=== PATIENT | female | born 1945 | race Caucasian/White ===

== ENCOUNTER 2017-02-28 10:38 | Inpatient (IN) | payer MEDICARE, BC ==
[2017-02-28 11:44] LABS: Basophils # (A) 0.1 k/uL (0-0.2); Basophils % (A) 1 %; CH 29.6; CHCM 33.5; Eosinophils # (A) 0.1 k/uL (0-0.7); Eosinophils % (A) 2 %; HCT 44.5 % (34.0-46.0); HDW 2.45; HGB 15.3 gm/dL (11.4-16.0); Luc # (Auto) 0.14; Luc % (Auto) 2; Lymphocytes # (A) 1.2 k/uL (1.0-4.8); Lymphocytes % (A) 20 %; MCH 30.6 pg (25.0-35.0); MCHC 34.4 g/dL (31.0-37.0); MCV 88.9 fL (80.0-100.0); Mean Platelet Volume 7.7; Monocytes # (A) 0.5 k/uL (0-1.0); Monocytes % (A) 9 %; Neutrophils # (A) 3.8 k/uL (1.3-7.7); Neutrophils % (A) 66 %; RBC 5.01 m/uL (3.80-5.40); RDW 14.2 % (11.5-15.5); WBC 5.8 k/uL (3.8-10.6); WBC (Perox) 5.56
[2017-02-28 11:56] LABS: ALT 41 U/L (9-52); AST 31 U/L (14-36); Alkaline Phosphatase 88 U/L (38-126); Anion Gap 12 mmol/L; Blood Urea Nitrogen 12 mg/dL (7-17); Calcium 10.4 mg/dL (8.4-10.2); Carbon Dioxide 25 mmol/L (22-30); Chloride 102 mmol/L (98-107); Glucose 106 mg/dL (74-99); Non-African American GFR(MDRD) >60 (>60 ml/min/1.73 sqM); Potassium 3.7 mmol/L (3.5-5.1); Sodium 139 mmol/L (137-145); Total Bilirubin 0.6 mg/dL (0.2-1.3); Total Protein 7.6 g/dL (6.3-8.2)
--- NOTE | 2017-02-28 12:05 | XR ---
EXAMINATION TYPE: XR chest 2V DATE OF EXAM: 02/28/2017 COMPARISON: Chest x-ray April 30, 2012 HISTORY: Altered mental status and weakness TECHNIQUE: Frontal and lateral views of the chest are obtained. FINDINGS: There is chronic parenchymal change without suspicious focal air space opacity, pleural ef fusion, or pneumothorax seen. The cardiac silhouette size is mildly enlarged with ectatic thoracic a frankie. The osseous structures are demineralized. IMPRESSION: No acute pulmonary process. No significant change from prior.
--- NOTE | 2017-02-28 12:08 | CT ---
EXAMINATION TYPE: CT brain wo con DATE OF EXAM: 02/28/2017 HISTORY: Headache, left sided facial droop slurred speech. CT DLP: 999.80 mGycm. Automated Exposure Control for Dose Reduction was Utilized. TECHNIQUE: CT scan of the head is performed without contrast. COMPARISON: None. FINDINGS: There is no acute intracranial hemorrhage or midline shift identified. There is diffuse v entricular and sulcal prominence consistent with diffuse age-related cerebral atrophy. The globes are intact and the visualized sinuses are clear. Some vascular calcification distal vertebral and inte rnal carotid arteries bilaterally is present. There is small subcutaneous lipoma high left frontal pa rietal region on axial image 44 noted. IMPRESSION: No acute intracranial hemorrhage or midline shift. There is mild diffuse age-related ce rebral atrophy noted most prominent over bilateral frontal lobes. If clinical concern for acute stroke persists further investigation with MRI study may be warranted.
[2017-02-28] MEDS ORDERED: ONDANSETRON 4 MG/2 ML VIAL IVP PRN (12:13)
[2017-02-28] MEDS ORDERED: NALOXONE 0.4 MG/ML 1 ML VIAL IV PRN (12:13)
[2017-02-28] MEDS ORDERED: ACETAMINOPHEN TAB 325 MG TAB PO PRN (12:13)
[2017-02-28] MEDS ORDERED: TEMAZEPAM 15 MG CAP PO PRN (12:13)
[2017-02-28] MEDS ORDERED: HYDROcodone/APAP 5-325MG 1 EACH TAB PO PRN (12:13)
--- NOTE | 2017-02-28 12:13 | ED ---
Neuro HPI - General Chief Complaint: Neuro Symptoms/Deficit Stated Complaint: POSS TIA Time Seen by Provider: 02/28/17 11:03 Source: patient Mode of arrival: wheelchair Limitations: no limitations - History of Present Illness Is the patient presenting with stroke symptoms?: Yes Initial Comments: Patient complains of left-sided weakness and facial droop. His began a few days ago. She was not doing anything when this happened. Her symptoms have remained about the same. She has no trouble talking. She is a mandatory. She has no trouble swallowing. She has no neck pain or stiffness. She has no change in vision or hearing. She denies any belly pain, back pain, chest pain. She has no shortness of breath. - Related Data Home Medications: Home Medications Medication Instructions Recorded Confirmed Aspirin 325 mg PO DAILY 02/28/17 02/28/17 Atorvastatin [Lipitor] 20 mg PO HS 02/28/17 02/28/17 Cholecalciferol (Vitamin D3) 2,000 unit PO DAILY 02/28/17 02/28/17 [Vitamin D3] Cyanocobalamin (Vitamin B-12) 1,000 mcg PO DAILY 02/28/17 02/28/17 [Vitamin B-12] Lactobacillus Acidophilus 1 tab PO DAILY 02/28/17 02/28/17 [Acidophilus] Levothyroxine Sodium [Synthroid] 112 mcg PO MOTUWETHFRSA 02/28/17 02/28/17 Levothyroxine Sodium [Synthroid] 224 mcg PO THOMAS 02/28/17 02/28/17 Lisinopril-Hctz 20-25 mg 1 tab PO DAILY 02/28/17 02/28/17 [Zestoretic 20-25] Metoprolol Tartrate [Lopressor] 50 mg PO QAM 02/28/17 02/28/17 Multivitamins, Thera [Multivitamin 1 tab PO DAILY 02/28/17 02/28/17 (formulary)] Allergies/Adverse Reactions: Allergies Allergy/AdvReac Type Severity Reaction Status Date / Time No Known Allergies Allergy Verified 02/28/17 11:00 Review of Systems ROS Statement: Those systems with pertinent positive or pertinent negative responses have been documented in the HPI. ROS Other: All systems not noted in ROS Statement are negative. General Exam Limitations: no limitations General appearance: alert, in no apparent distress Head exam: Present: atraumatic, normocephalic, normal inspection Eye exam: Present: normal appearance, PERRL, EOMI. Absent: scleral icterus, conjunctival injection, periorbital swelling ENT exam: Present: normal exam, mucous membranes moist Neck exam: Present: normal inspection. Absent: tenderness, meningismus, lymphadenopathy Respiratory exam: Present: normal lung sounds bilaterally. Absent: respiratory distress, wheezes, rales, rhonchi, stridor Cardiovascular Exam: Present: regular rate, normal rhythm, normal heart sounds. Absent: systolic murmur, diastolic murmur, rubs, gallop, clicks GI/Abdominal exam: Present: soft, normal bowel sounds. Absent: distended, tenderness, guarding, rebound, rigid Extremities exam: Present: normal inspection, full ROM, normal capillary refill. Absent: tenderness, pedal edema, joint swelling, calf tenderness Back exam: Present: normal inspection Neurological exam: Present: alert, oriented X3, CN II-XII intact Psychiatric exam: Present: normal affect, normal mood Skin exam: Present: warm, dry, intact, normal color. Absent: rash Stroke MDM - Lab Data Result diagrams: 02/28/17 11:25 02/28/17 11:25 Lab Results 02/28/17 02/28/17 Range/Units 11:25 11:25 WBC 5.8 (3.8-10.6) k/uL RBC 5.01 (3.80-5.40) m/uL Hgb 15.3 (11.4-16.0) gm/dL Hct 44.5 (34.0-46.0) % MCV 88.9 (80.0-100.0) fL MCH 30.6 (25.0-35.0) pg MCHC 34.4 (31.0-37.0) g/dL RDW 14.2 (11.5-15.5) % Plt Count 230 (150-450) k/uL Neutrophils % 66 % Lymphocytes % 20 % Monocytes % 9 % Eosinophils % 2 % Basophils % 1 % Neutrophils # 3.8 (1.3-7.7) k/uL Lymphocytes # 1.2 (1.0-4.8) k/uL Monocytes # 0.5 (0-1.0) k/uL Eosinophils # 0.1 (0-0.7) k/uL Basophils # 0.1 (0-0.2) k/uL Sodium 139 (137-145) mmol/L Potassium 3.7 (3.5-5.1) mmol/L Chloride 102 (98-107) mmol/L Carbon Dioxide 25 (22-30) mmol/L Anion Gap 12 mmol/L BUN 12 (7-17) mg/dL Creatinine 0.73 (0.52-1.04) mg/dL Est GFR (MDRD) Af Amer >60 (>60 ml/min/1.73 sqM) Est GFR (MDRD) Non-Af >60 (>60 ml/min/1.73 sqM) Glucose 106 H (74-99) mg/dL Calcium 10.4 H (8.4-10.2) mg/dL Total Bilirubin 0.6 (0.2-1.3) mg/dL AST 31 (14-36) U/L ALT 41 (9-52) U/L Alkaline Phosphatase 88 (38-126) U/L Total Protein 7.6 (6.3-8.2) g/dL Albumin 4.5 (3.5-5.0) g/dL - Medical Decision Making Patient complains of left-sided weakness. On my exam, she has some slight left- sided facial droop although I don't appreciate any weakness in the extremities and she has normal speech. Her laboratory studies are unremarkable. CT does not show an acute stroke or bleed. She will be admitted with a neuro consultation. 02/28/17 12:11 Twelve-lead EKG obtained, interpreted by me as showing ventricular rate 77 bpm, normal KS interval and QRS complexes, no ST elevation or depression, interpreted by me as normal sinus rhythm. Past Medical History Past Medical History: Atrial Fibrillation, Cancer, Hypertension, Thyroid Disorder History of Any Multi-Drug Resistant Organisms: None Reported Past Surgical History: Breast Surgery, Joint Replacement, Tonsillectomy Additional Past Surgical History / Comment(s): knee, left lumpectomy Past Psychological History: No Psychological Hx Reported Smoking Status: Former smoker Past Alcohol Use History: None Reported Past Drug Use History: None Reported Course Vital Signs 02/28/17 02/28/17 10:40 11:37 Temperature 97.5 F L Pulse Rate 81 87 Respiratory 16 18 Rate Blood Pressure 136/75 110/69 O2 Sat by Pulse 95 94 L Oximetry Disposition Clinical Impression: Cerebrovascular accident Disposition: ADMITTED IP TO THIS HOSP Condition: Fair Referrals: Stiven Ruiz MD [Primary Care Provider] - 1-2 days Time of Disposition: 12:12
[2017-02-28 12:15] LABS: INR 1.2 (<1.2); Partial Thromboplastin Time 22.9 sec (22.0-30.0); Prothrombin Time 11.5 sec (9.0-12.0)
[2017-02-28] MEDS: LEVOTHYROXINE 112 MCG TAB PO SCH (14:13)
--- NOTE | 2017-02-28 15:18 | US ---
EXAMINATION TYPE: US carotid duplex BILAT DATE OF EXAM: 02/28/2017 COMPARISON: NONE CLINICAL HISTORY: Slurred speech on Sunday along with inability to read, headache and nausea today EXAM MEASUREMENTS: RIGHT: Peak Systolic Velocity (PSV) cm/sec ----- Right CCA: 71.3 ----- Right ICA: 68.8 ----- Right ECA: 80.1 ICA/CCA ratio: 1.0 RIGHT: End Diastole cm/sec ----- Right CCA: 20.8 ----- Right ICA: 22.6 ----- Right ECA: 9.7 LEFT: Peak Systolic Velocity (PSV) cm/sec ----- Left CCA: 90.7 ----- Left ICA: 79.1 ----- Left ECA: 56.5 ICA/CCA ratio: 0.9 LEFT: End Diastole cm/sec ----- Left CCA: 18.0 ----- Left ICA: 19.4 ----- Left ECA: 11.2 VERTEBRALS (direction of flow): Right Vertebral: Antegrade Left Vertebral: Antegrade Rhythm: Normal Minimal plaque, tortuous right ICA, no significant velocity elevations. Grayscale images show no significant focal plaque at carotid bulb level bilaterally. Velocity measure ments and ratios in visualized portion of both internal carotid arteries is within normal limits. IMPRESSION: No hemodynamically significant stenosis is seen in either internal carotid artery.
--- NOTE | 2017-02-28 17:17 | MR ---
EXAMINATION TYPE: MR brain wo/w con DATE OF EXAM: 02/28/2017 COMPARISON: MRI brain July 01, 2014. CT brain earlier today. HISTORY: Patient had slurred speech, left facial droop and headache on Sunday and now again today TECHNIQUE: Multiplanar, multisequence images of the brain and brainstem is performed without and with IV contras t, utilizing 9 mL intravenous Gadavist . FINDINGS: Diffusion weighted images demonstrate no evidence of a recent infarct or other diffusion ab normality. There is no worrisome extra-axial fluid collection. There is ventricular and sulcal promi nence particularly over bilateral frontal lobes. There are scattered foci of T2 hyperintensity seen t hroughout the white matter bilaterally. Approximately 15-20 small scattered lesions are present. Midline structures demonstrate normal morphology. The craniocervical junction appears within normal limits. Post contrast images demonstrate no abnormal enhancement. The dural venous sinuses appear pa tent. The visualized sinuses are clear and the globes are intact. Patchy increased fluid signal right mastoid air cells is redemonstrated. IMPRESSION: 1. No evidence of a recent infarct. 2. There is mild diffuse cerebral and particular frontal lobe atrophy and mild to moderate chronic sm all vessel ischemic change redemonstrated without significant change from prior MRI.
--- NOTE | 2017-02-28 18:00 | HP ---
HISTORY AND PHYSICAL DATE OF ADMISSION: February 28, 2017. PRESENT COMPLAINT: Headache. HISTORY OF PRESENT COMPLAINT: A very pleasant 71-year-old patient of Dr. Ruiz whose chronic stable medical conditions include hypertension, hyperlipidemia, osteoarthritis, hypothyroid. The patient has had atrial fibrillation many years ago. Did see Dr. Ray who had advised to go on anticoagulation. Hence patient saw a electrical tech out of [place] Dr. Kessler who told the patient to go on a full dose of aspirin. The patient intermittently does get a short-lived fluttering sensation in the chest that goes away on its own. The patient 5 days ago had an episode of 2 minutes lasting which she could not find the words, became numb in the right leg and the right arm, lasted for about 2 minutes, then came back to her baseline. The patient is able to get to a family doctor. Today patient developed left-sided headache and question if she had some droopiness of the eyelid. Hence decided to come into the ER. Currently no change in speech. No change in vision. No focal weakness. Able to swallow. REVIEW OF SYSTEMS: CONSTITUTIONAL: None. HEENT none. Respiratory none. Cardiovascular none. Gastrointestinal and genitourinary none. Musculoskeletal pain in the joints. Dermatological and hematologic, lymphatic none. Psychiatry none. Neurological as above. PAST MEDICAL HISTORY: Paroxysmal atrial fibrillation, hypertension, hyperlipidemia, osteoarthritis, hypothyroid. PAST SURGICAL HISTORY: Left breast cancer, lumpectomy and radiation. PAST SURGICAL HISTORY: Joint replacement, right total knee arthroplasty, left breast lumpectomy, left wrist fracture with metal plate, bilateral cataracts, skin cancer removed from perineal area. SOCIAL HISTORY: The patient lives alone. Smoked for 15 years. Stopped in 1977. Alcohol none. FAMILY HISTORY: Father of prostate cancer. HOME MEDICATIONS: Lipitor 20 mg q.h.s., multivitamin 1 tab p.o. daily, acidophilus 1 tab p.o. daily, vitamin B12 1000 mcg p.o. daily, vitamin D3 2000 units p.o. daily, aspirin 325 p.o. daily, Zestoretic 1 tab p.o. daily, Synthroid 224 mcg p.o. on Sunday, 112 mcg on Sunday, Sunday, Sunday, , Sunday, Sunday, Lopressor 50 mg p.o. in the morning. ALLERGIES: None. PHYSICAL EXAMINATION: Vital signs on presentation temperature 97.5, pulse 81, respirations 16, blood pressure 136/75, pulse ox 95% on room air. GENERAL APPEARANCE: Well built, BMI 30.1, sitting up not in distress. Eyes pupils equal. Conjunctivae normal. HEENT: Oral cavity normal. Neck JVD not raised. Mass not palpable. Respiratory effort normal. Lungs are clear. cardiovascular first and second sounds normal. No edema. ABDOMEN: Soft, nontender. Liver and spleen not palpable. Lymphatics: No lymph nodes palpable in the neck, axillae or groin. Psychiatry alert and oriented times three. Mood and affect normal. Neurological pupils equal. Cranial nerves grossly intact. Power and sensation grossly intact. INVESTIGATIONS: White count 5.8, hemoglobin 15.3, potassium 3.7, BUN and creatinine is normal. CT scan of the brain nil acute. MRI of the brain shows some chronic atrophy. Carotid Doppler unremarkable. ASSESSMENT: 1. This is a patient presents with transient ischemic attack in the left middle cerebral artery area likely could be ischemic. Also could be embolic given that the patient has a long history of atrial fibrillation and does get intermittent symptoms. Given the patient is currently not in sinus rhythm this could may be the cause of stroke of her transient ischemic attack. The patient will need to have a MAYCO to make sure there is no thrombus. Byron score is Byron score is at least 3 given the transient ischemic attack, female sex, hypertension, and given her history. 2. Obesity; BMI 30.1. 3. Essential hypertension. 4. Hyperlipidemia. 5. Primary osteoarthritis of the hands and knees. 6. Hypothyroid. 7. Paroxysmal atrial fibrillation. PLAN: We will get a cardiology consultation to do a MAYCO. I think this is makes a strong case for the patient on anticoagulation. In the meantime neurology will see the patient and also get a cardiology opinion for the same. Care was discussed with the patient. Home medications are resumed. We will check patient's thyroid function and Lovenox for DVT prophylaxis. We will also check a lipid profile. Copy Dr. Ruiz. NASIMA / MARSHA: [id number] /
[2017-02-28] MEDS: ATORVASTATIN 20 MG TAB PO SCH (20:27)
[2017-02-28] MEDS: FAMOTIDINE 20 MG TAB PO SCH (20:27)
--- NOTE | 2017-02-28 20:31 | P.CNNES ---
History of Present Illness Consult date: 02/28/17 History of Present Illness: The patient is a 71-year-old right-handed white female who reports that last Sunday around 9:30 the morning she was at a [employer] volunte[employer] and she had some word finding difficulty. She also noticed that her right leg was numb. Entire episode lasted for about 5 minutes. She later developed a headache and felt fatigued. This continued through the weekend. She saw her primary care physician on Sunday and he had ordered testing including echo CT and carotid. This morning she was shopping with a friend and she continued to have a headache and she decided to ask a friend to drive her to the hospital. She also had left eyelid drooping. The patient has a history of atrial fibrillation years ago. She sees a change room attendant at [facility] who placed her on adult dose aspirin. She has no past history of eyelid droop or speech disturbance. He had a CAT scan of the brain in the emergency room which showed age-related changes. She also had a carotid ultrasound which was negative. She had an MRI of the brain which showed small vessel disease. Review of Systems Eyes: denies blurred vision, denies pain Cardiovascular: Denies chest pain, Denies shortness of breath Respiratory: Denies cough Gastrointestinal: Denies abdominal pain, Denies diarrhea, Denies nausea, Denies vomiting Musculoskeletal: Denies myalgias Neurological: Denies numbness, Denies weakness Past Medical History Past Medical History: Atrial Fibrillation, Cancer, Hyperlipidemia, Hypertension , Osteoarthritis (OA), Thyroid Disorder Additional Past Medical History / Comment(s): L breast cancer with lumpectomy and radiation, hypothyroid, skin cancer with removal, due next month for total L knee arthroplasty. History of Any Multi-Drug Resistant Organisms: None Reported Past Surgical History: Breast Surgery, Joint Replacement, Orthopedic Surgery, Tonsillectomy Additional Past Surgical History / Comment(s): Total R knee arthroplasty, left breast lumpectomy, L writst fracture with metal plate, colonoscopy, bilateral cataract removal with lens implants, skin cancer removal from perineal area x5 with local anesthesia. Past Anesthesia/Blood Transfusion Reactions: Postoperative Nausea & Vomiting ( PONV) Smoking Status: Former smoker - Past Family History Father Family Medical History: Cancer Additional Family Medical History / Comment(s): Father of prostate cancer. Mother Family Medical History: Chest Pain / Angina Additional Family Medical History / Comment(s): Mother lived to be 96yrs old. Medications and Allergies Home Medications Medication Instructions Recorded Confirmed Type Aspirin 325 mg PO DAILY 02/28/17 02/28/17 History Atorvastatin [Lipitor] 20 mg PO HS 02/28/17 02/28/17 History Cholecalciferol (Vitamin D3) 2,000 unit PO DAILY 02/28/17 02/28/17 History [Vitamin D3] Cyanocobalamin (Vitamin B-12) 1,000 mcg PO DAILY 02/28/17 02/28/17 History [Vitamin B-12] Lactobacillus Acidophilus 1 tab PO DAILY 02/28/17 02/28/17 History [Acidophilus] Levothyroxine Sodium [Synthroid] 112 mcg PO MOTUWETHFRSA 02/28/17 02/28/17 History Levothyroxine Sodium [Synthroid] 224 mcg PO THOMAS 02/28/17 02/28/17 History Lisinopril-Hctz 20-25 mg 1 tab PO DAILY 02/28/17 02/28/17 History [Zestoretic 20-25] Metoprolol Tartrate [Lopressor] 50 mg PO QAM 02/28/17 02/28/17 History Multivitamins, Thera [Multivitamin 1 tab PO DAILY 02/28/17 02/28/17 History (formulary)] Allergies Allergy/AdvReac Type Severity Reaction Status Date / Time No Known Allergies Allergy Verified 02/28/17 11:00 Physical Examination - Vital Signs Vital Signs: Vital Signs Temp Pulse Pulse Resp BP BP Pulse Ox 02/28/17 16:00 98.2 F 85 18 116/69 93 L 02/28/17 13:13 97.2 F L 79 18 145/91 95 02/28/17 12:50 97.6 F 02/28/17 12:34 94 19 120/77 96 02/28/17 11:37 87 18 110/69 94 L 02/28/17 10:40 97.5 F L 81 16 136/75 95 Intake and Output 02/28/17 02/28/17 02/28/17 06:59 14:59 22:59 Intake Total 120 180 Balance 120 180 Intake: Oral 120 180 Other: Voiding Method Toilet Toilet Weight 89.811 kg Patient Weight 03/01/17 06:59 Weight 89.811 kg - Constitutional General appearance: average body habitus, cooperative - EENT EENT: PERRL, hearing intact - Respiratory Respiratory: lungs clear - Cardiovascular Cardiovascular: regular rate - Integumentary Integumentary: normal - Neurologic Mental status she was awake alert and oriented she answered questions appropriately there was no a aphasia or dysarthria Cranial nerve examination: PERRL, EOMI, VFF, face symmetric, tongue midline, intact Speech examination: intact Detailed motor examination: grossly full strength in all extremities Cerebellar examination: other (Finger to nose [id number] intact) Results - Laboratory Findings CBC and BMP: 02/28/17 11:25 02/28/17 11:25 Abnormal Lab Findings: Abnormal Labs 02/28/17 02/28/17 11:25 11:25 INR 1.2 H Glucose 106 H Calcium 10.4 H Assessment and Plan (1) TIA (transient ischemic attack) Current Visit: Yes Status: Acute Code(s): G45.9 - TRANSIENT CEREBRAL ISCHEMIC ATTACK, UNSPECIFIED SNOMED Code(s): 426593981 Plan: The patient is a 71-year-old woman with multiple medical problems including hypertension hyper lipidemia paroxysmal A. fib who is had 2 episodes this week concerning for possible TIA. She also presents with headache. He has been on aspirin 325 mg a day. Her risk factors for stroke include hypertension past history of smoking hyperlipidemia and heart disease. She had an MRI which was unremarkable. Her carotid ultrasound was also unremarkable. She will be evaluated by cardiology for a MAYCO. Also recommend MRA of head to rule out underlying vascular abnormality
[2017-03-01 06:24] LABS: Cholesterol 176 mg/dL (<200); HDL Cholesterol 41 mg/dL (40-60)
[2017-03-01] MEDS: LEVOTHYROXINE 112 MCG TAB PO SCH (06:44)
[2017-03-01] MEDS: LISINOPRIL-HCTZ 20-25 MG 1 EACH TAB PO SCH (08:21)
[2017-03-01] MEDS: FAMOTIDINE 20 MG TAB PO SCH ×2 (08:21→20:29)
[2017-03-01] MEDS: ENOXAPARIN 40 MG/0.4 ML SYRINGE SQ SCH (08:21)
[2017-03-01] MEDS: ASPIRIN 325 MG TAB PO SCH (08:21)
[2017-03-01] MEDS: CHOLECALCIFEROL 1,000 UNIT TAB PO SCH (08:22)
[2017-03-01] MEDS: CYANOCOBALAMIN 500 MCG TAB PO SCH (08:22)
[2017-03-01] MEDS: METOPROLOL TARTRATE 50 MG TAB PO SCH (08:22)
--- NOTE | 2017-03-01 09:20 | MR ---
EXAMINATION TYPE: MR angio head wo con DATE OF EXAM: 03/01/2017 9:11 AM COMPARISON: NONE HISTORY: Headache Three-dimensional [id number] intracranial MRA was performed with multiple intensity projection im ages submitted and source data reviewed at the workstation. The vertebrobasilar system as well as intracranial portions of the internal carotid arteries and thei r major tributaries are patent. I do not see evidence for sizable aneurysm or vascular malformation. IMPRESSION: Normal study.
--- NOTE | 2017-03-01 10:03 | ECHOF ---
Referral Reason:tia MEASUREMENTS -------- HEIGHT: 172.7 cm WEIGHT: 89.8 kg BP: RVIDd: 3.8 cm (< 3.3) IVSd: 1.5 cm (0.6 - 1.1) LVIDd: 4.4 cm (3.9 - 5.3) LVPWd: 1.0 cm (0.6 - 1.1) IVSs: 1.5 cm LVIDs: 2.8 cm LVPWs: 1.5 cm LA Diam: 3.6 cm (2.7 - 3.8) LAESV Index (A-L): 11.38 ml/m Ao Diam: 3.0 cm (2.0 - 3.7) AV Cusp: 2.0 cm (1.5 - 2.6) LA Diam: 3.8 cm (2.7 - 3.8) MV EXCURSION: 15.271 mm (> 18.000) MV EF SLOPE: 53 mm/s (70 - 150) EPSS: 0.7 cm MV E Prince: 0.34 m/s MV DecT: 204 ms MV A Prince: 0.51 m/s MV E/A Ratio: 0.66 RAP: 5.00 mmHg RVSP: 23.58 mmHg FINDINGS -------- Sinus rhythm. This was a techncally difficult study with suboptimal views, , Definity utilized for enhancement of i mages. The left ventricular size is normal. There is mild concentric left ventricular hypertrophy. Overa ll left ventricular systolic function is normal with, an EF between 55 - 60 %. The diastolic fillin g pattern is normal for the age of the patient {E/E'}. The right ventricle is moderately enlarged. Normal LA size by volume 22+/-6 ml/m2. The right atrial size is normal. 1.5MG OF DEFINITY UTLIZED: 2 OR MORE WALL SEGMENTS NOT VISUALIZED. The aortic valve is trileaflet, and appears structurally normal. No aortic stenosis or regurgitation. Mild mitral regurgitation is present. Mild tricuspid regurgitation present. There is no evidence of pulmonary hypertension. The right v entricular systolic pressure, as measured by Doppler, is 23.58mmHg. There is no pulmonic regurgitation present. The aortic root size is normal. There is no pericardial effusion. CONCLUSIONS -------- 1. This was a techncally difficult study with suboptimal views, , Definity utilized for enhancement o f images. 2. The left ventricular size is normal. 3. There is mild concentric left ventricular hypertrophy. 4. Overall left ventricular systolic function is normal with, an EF between 55 - 60 %. 5. The diastolic filling pattern is normal for the age of the patient {E/E'} 6. The right ventricle is moderately enlarged. 7. 1.5MG OF DEFINITY UTLIZED: 2 OR MORE WALL SEGMENTS NOT VISUALIZED. 8. The aortic valve is trileaflet, and appears structurally normal. No aortic stenosis or regurgitati on. 9. Mild mitral regurgitation is present. 10. Mild tricuspid regurgitation present. 11. There is no evidence of pulmonary hypertension. 12. The right ventricular systolic pressure, as measured by Doppler, is 23.58mmHg. 13. There is no pulmonic regurgitation present. 14. The aortic root size is normal. 15. There is no pericardial effusion. RADIATION PHYSICIST: Yakelin Pulido RDCS
[2017-03-01] MEDS ORDERED: SODIUM CHLORIDE 0.9% 1,000 ML IV SCH (11:15)
[2017-03-01] MEDS ORDERED: ceFAZolin 2 GM in SODIUM CHLORIDE 0.9% 100 ML IVPB ONE (12:26)
[2017-03-01] MEDS ORDERED: ceFAZolin IN SWFI 2 GM/20 ML SYRINGE IVP ONE ×2 (12:30→12:53)
[2017-03-01] MEDS ORDERED: SODIUM CHLORIDE 0.9% 500 ML IV ONE (12:48)
[2017-03-01] MEDS ORDERED: MIDAZOLAM 2 MG/2 ML VIAL IV ONE (12:53)
[2017-03-01] MEDS ORDERED: LIDOCAINE 2% INJ 20 MG/ML SQ ONE (12:54)
--- NOTE | 2017-03-01 13:46 | PCN ---
PROCEDURE NOTE DATE OF SERVICE: PROCEDURE: Loop recorder implantation. PERFORMED BY: Dr. Isidra Schumacher. DIAGNOSES: Transient ischemic attack with possible paroxysmal atrial fibrillation. CLINICAL INFORMATION: Mrs. Radha Oseguera is a 71-year-old lady with hypertension and paroxysmal atrial fibrillation who was on aspirin. She came into the hospital with a TIA like picture with full neurological recovery. However, because of her history of cryptogenic stroke with an unremarkable CAT scan and carotid Doppler, I advised her to have a loop recorder to detect for any atrial fibrillation. She has a remote history of atrial fibrillation, has not been on Coumadin. Risks, benefits, options and rationale were explained. PROCEDURE NOTE: Under local anesthesia and strict aseptic precautions, using the provided tool , a stab incision was made in the left 4th intercostal space. Using the dilator and plunger, the loop recorder was inserted. Excellent signal was achieved. 0.36 mV was noted. The loop recorder was set to a cryptogenic stroke protocol. The patient tolerated the procedure well without complication. Device INFO : [employer] LINQ Model LNQ11 Serial # [id number] Moderate conscious sedation time was about 15 minutes. There was no other family to talk to. I explained to the patient the details of the procedure and we will see her again tomorrow and possibly perform a transesophageal echo as well. MMODL / IJN: [id number] / KAITLYNN
--- NOTE | 2017-03-01 14:36 | P.PN ---
Progress Note - Text Progress Note Date: 03/01/17 DATE OF SERVICE: 03/01/2017 PRESENTING COMPLAINT: Headache HISTORY OF PRESENT ILLNESS: 71-year-old female who presented to the emergency department with concerns for left-sided headache and droopiness of the eyelid.. No changes in speech no change in vision no focal weakness able to swallow. Patient has a history of cryptogenic stroke. Admitted for the same. INTERVAL HISTORY: 03/01/2017: Patient seen in follow-up, ambulating in the room. No further episodes of left- sided headache or droopiness of the eyelid. Neurologic evaluation showed no acute process/stroke/TIA. Patient's tolerating her diet ambulatory in the room and hallway, moving her bowels. Cardiology placed a loop recorder to detect for any atrial fibrillation, patient does have a remote history of atrial fibrillation not on Coumadin. REVIEW OF SYSTEMS: Done for constitutional ,cardiovascular, GI, pulmonary with relevant findings as above. CURRENT MEDICATIONS Zestoretic 20-25 mg on tablet by mouth daily, Lopressor 50 mg by mouth every morning, PHYSICAL EXAM VITAL SIGNS: Temperature 97.3, pulse 92, respiratory rate 16, blood pressure 105/70, oxygen saturation 93% on room air. GENERAL APPEARANCE: Standing at the bedside, not in distress. EYES: Pupils equal. Conjunctiva normal. NECK: JVD not raised. Mass not palpable. RESPIRATORY: Respiratory effort normal. Lungs clear to auscultation. CARDIOVASCULAR: First and second sounds normal. No edema. ABDOMEN: Soft. Liver and spleen not palpable. No tenderness. No mass palpable. PSYCHIATRY: Alert and oriented x3. Mood and affect normal. INVESTIGATIONS: CBC unremarkable, INR 1.2, calcium 10.4 triglycerides 230, cholesterol 176, LDL 89, HDL 41. MRA: Normal study. ASSESSMENT: -Transient ischemic attack in the left middle cerebral artery likely could be ischemic. Possible embolic secondary to long history of atrial fibrillation, chads score is at least 3 -Obesity body mass index 30.1. -Essential hypertension. -Hyperlipidemia. -Primary osteoarthritis of the hands and knees. -Hypothyroidism. -Paroxysmal atrial fibrillation, currently in sinus rhythm PLAN: Loop recorder placed today, await further input from cardiology. Patient has had no further symptoms of facial drooping or headache. All other testing negative for any acute process. Plan of care discussed with the patient the bedside we will follow closely. APPRAISAL MANAGER statement: Patient was seen and examined by nurse practitioner Gail Gonzáles and all elements of the case discussed with attending Dr. Logan
[2017-03-01] MEDS: ATORVASTATIN 20 MG TAB PO SCH (20:29)
--- NOTE | 2017-03-01 20:55 | CONS ---
CONSULTATION Mrs. Oseguera is a 71-year-old lady with a history of hypertension, cardiovascular disease and also a remote history of paroxysmal atrial fibrillation for which she was placed on Coumadin. She used to see Dr. Ray in early 1999 and at that time she was on Coumadin, but she has stopped the Coumadin and she has sought another opinion at [facility] with Dr. Mac Diop. According to the patient, she was switched over from Coumadin to aspirin only and did well for quite some time. However, about a 6 days ago, she developed a sudden situation where she started feeling difficulty to get words and could not read a paper completely. She seemed to have a lack of memory and these episodes happened for a while, then she had a very bad headache after that and came into the hospital after being seen by her primary care physician, Dr. Ruiz. A diagnosis of TIA has been made and we were asked to see her with regard to further evaluation and possible MAYCO. The patient is in sinus rhythm and I have reviewed the entire telemetry record. There is no evidence of any atrial fibrillation, but the patient does carry a diagnosis of paroxysmal atrial fibrillation in the past and has used Coumadin. Her blood pressure control is optimal. She is resting comfortably without symptoms. PAST MEDICAL HISTORY: 1. Remote history of paroxysmal atrial fibrillation for which she was on Coumadin for a while, then switched to aspirin for the last 10 years. 2. Hypertension. 3. Hypercholesterolemia. 4. No evidence of any prior myocardial infarction. Apparently, patient had a stress test more than 5 to 6 years ago, was told it was normal. PHYSICAL EXAMINATION: Blood pressure is 130/70, pulse rate is about 70 per minute, regular sinus. HEENT: Unremarkable. Fundus was not examined by me. NECK: Supple. There is no JVD. I do not hear any carotid bruit. There is no thyromegaly. Heart reveals S1, S2 heard normally with a short systolic murmur at the mid left sternal border. Lungs reveal decent air entry, bilateral lung paez. ABDOMEN: Soft, nontender. Lower extremities reveal normal pulses. No edema. CENTRAL NERVOUS SYSTEM: Grossly within normal limits. The EKG revealed a sinus mechanism with nonspecific T-wave flattening. No acute changes were noted. CT scan of the brain performed yesterday revealed no acute intracranial process. There was a mild diffuse age-related cerebral atrophy noted. A brain MRI also did not reveal any evidence of recent infarct. The patient also went on to have an MR angiography today and this was a normal study without any evidence of vascular malformation, aneurysm or any abnormalities of significance. Her carotid Doppler also revealed no hemodynamically significant lesions noted. Vertebral flow was in the antegrade direction bilaterally. IMPRESSION: 1. Probable transient ischemic attack. 2. Remote history of paroxysmal atrial fibrillation. 3. Hypertension. 4. Hypercholesterolemia. RECOMMENDATIONS: Given the circumstances, I am recommending that we will proceed with a transesophageal echo, but the patient has eaten today and this procedure will be performed tomorrow. I will perform a loop recorder today to see if she has any atrial fibrillation down the road. I discussed this in detail with the patient. I explained her the rationale, risks, benefits and options. I will also speak to her gluer and wedger in [facility], since she wishes to follow up there after discharge. At the time of my evaluation, she is resting comfortably without any significant symptoms. Will proceed with loop recorder today and a transesophageal echo tomorrow. MMODL / IJN: [id number] /
[2017-03-02] MEDS: ENOXAPARIN 40 MG/0.4 ML SYRINGE SQ SCH (08:52)
[2017-03-02] MEDS: ASPIRIN 325 MG TAB PO SCH (08:54)
[2017-03-02] MEDS: METOPROLOL TARTRATE 50 MG TAB PO SCH (08:54)
[2017-03-02] MEDS: FAMOTIDINE 20 MG TAB PO SCH (08:54)
[2017-03-02] MEDS: LISINOPRIL-HCTZ 20-25 MG 1 EACH TAB PO SCH (08:54)
[2017-03-02] MEDS: LEVOTHYROXINE 112 MCG TAB PO SCH (08:54)
[2017-03-02] MEDS: CYANOCOBALAMIN 500 MCG TAB PO SCH (08:55)
[2017-03-02] MEDS: CHOLECALCIFEROL 1,000 UNIT TAB PO SCH (08:55)
[2017-03-02 09:05] VITALS: TEMP 97.7
[2017-03-02] MEDS ORDERED: fentaNYL (PF) 50 MCG/ML 2 ML AMP ONE ×2 (09:55→11:34)
[2017-03-02] MEDS ORDERED: MIDAZOLAM 2 MG/2 ML VIAL ONE ×2 (09:55→11:34)
[2017-03-02] MEDS ORDERED: IV FLUID CONTINUATION 425 ML IV ONE (11:45)
[2017-03-02] MEDS: BENZOCAINE SPRAY 1 CAN MUCOUS MEM ONE ×2 (11:50→11:51)
[2017-03-02] MEDS: MIDAZOLAM 2 MG/2 ML VIAL IVP ONE ×2 (11:55→11:57)
[2017-03-02] MEDS ORDERED: fentaNYL (PF) 50 MCG/ML 2 ML AMP IVP ONE (11:55)
[2017-03-02 12:04] VITALS: PULSE 65
[2017-03-02] MEDS ORDERED: SODIUM CHLORIDE 0.9% 1,000 ML IV SCH (12:30)
[2017-03-02 12:37] VITALS: BP 90/51; RESP 14
--- NOTE | 2017-03-02 12:41 | ECHOT ---
TRANSESOPHAGEAL ECHOCARDIOGRAM This patient came with a history suggestive for TIA. Transesophageal echocardiogram was performed to rule out any cardiac source of emboli. PROCEDURE: The patient was given intravenous sedation with Versed and fentanyl and transesophageal echocardiogram was performed without any complications. Left ventricular chamber is normal in size with normal left ventricular systolic function. There is no evidence of thrombus in the left ventricular apex. Mitral, aortic and tricuspid valve morphology is normal. Aortic valve is mildly thickened. There is mild mitral regurgitation noted. Left atrial appendage is clear without any evidence of thrombus. Left atrium is mildly enlarged. Right ventricle and right atrial chamber are normal in size. Interatrial septum is intact. There is no evidence of PFO. There is no evidence of any right to left shunt by saline contrast study. Descending thoracic aorta shows minimal atherosclerotic plaque. FINAL IMPRESSION: 1. Normal left ventricular chamber size with normal left ventricular systolic function. 2. There is no evidence of thrombus in left atrial appendage, left atrium or left ventricular apex. 3. Mild thickening of the aortic leaflet is noted. 4. Mitral and tricuspid valve morphology is normal. There is a mild mitral regurgitation noted. 5. Interatrial septum is intact. There is no evidence of any PFO or rbxib-tx-soby shunt. 6. There is minimal atherosclerotic plaque noted in the descending thoracic aorta. MMODL / IJN: [id number] /
--- NOTE | 2017-03-02 15:29 | DS ---
DISCHARGE SUMMARY DATE OF ADMISSION: 02/28/17. DATE OF DISCHARGE: 03/02/17 FINAL DIAGNOSES: 1. TIA in the territory of left middle cerebral artery. This could be ischemic or also could be embolic. 2. Obesity; BMI 30.1. 3. Essential hypertension. 4. Hyperlipidemia. 5. Primary osteoarthritis of the hands and knees. 6. Hypothyroid. 7. Paroxysmal atrial fibrillation. HOSPITAL COURSE: This is a patient with history of atrial fibrillation in the past and gets symptoms of palpitations, presented with episode that she could not speak and numb in the right leg and the right arm for 2 minutes. The patient had a loop recorder placed and was put on Eliquis. The patient's MRI of the brain was unremarkable, was showing some frontal lobe atrophy. Carotid Doppler was unremarkable. PE was negative for thrombus. 2D echo showed preserved LV function. CONSULTATION: 1. Dr. Isidra Schumacher from Cardiology. 2. Dr. Wandy Yun from Neurology. The patient was cleared with the above consultants for discharge. On examination, no focal deficits. CARDIOVASCULAR: First and second sounds normal. DISCHARGE MEDICATIONS: 1. Lipitor 20 mg q.h.s. 2. Vitamin D3 2000 units p.o. daily. 3. Vitamin B12 1000 mcg p.o. daily. 4. Acidophilus 1 tab p.o. daily. 5. Synthroid 112 mcg on every day of the week except for Sundays she gets 224 mcg. 6. Zestoretic 1 tab p.o. daily. 7. Multivitamin 1 tab p.o. daily. 8. Eliquis 5 mg p.o. b.i.d. 9. Aspirin 81 mg p.o. daily. 10.Lopressor 25 mg p.o. b.i.d. Follow up with Dr. Kessler her histopathologist in 2 weeks, Dr. Isidra Schumacher on March 12, 2017, Dr. Ruiz in [address] Wandy Yun in 2 weeks. Patient also, lungs are clear. Cardiovascular: 1st and 2nd sounds normal. MMODL / IJN: [id number] /
[2017-03-02] MEDS ORDERED: APIXABAN 5 MG TAB PO SCH (21:00)
[2017-03-04] MEDS ORDERED: LEVOTHYROXINE 112 MCG TAB PO SCH (06:30)
--- NOTE | 2017-04-01 16:33 | PN ---
PROGRESS NOTE DATE OF SERVICE: March 01, 2017. ATTENDING NOTE: Patient seen and examined by me on 03/01/17. I discussed the case with nurse practitioner, Ms. Gonzáles. The patient does not have any neuro deficits. Neurological workup is in place. No neurological symptoms. EXAMINATION: Blood pressure 105/70, pulse 92. On examination lungs are clear. Cardiovascular 1st and 2nd sounds normal. No neuro deficits. ASSESSMENT: Status post transient ischemic attack. PLAN: 1. Loop recorder placed today. 2. We will follow the patient. MMODL / IJN: [id number] /
== END 2017-03-02 15:41 | disposition home or self-care (01) | DRG 42 ==
LOC: EC 10:38 → 6SEL 12:13 → OBSVTOIN 03-02 08:09
PROVIDERS: ADMIT Hospitalist; ATTEND Hospitalist
PROC: 0JH632Z Insertion of Monitoring Device into Chest Subcutaneous Tissue and Fascia, Percutaneous Approach (ICD-10-PCS; principal; 2017-03-02 11:35)
DX: I63.9 Cerebral infarction, unspecified (principal); I48.0 Paroxysmal atrial fibrillation; I10 Essential (primary) hypertension; E66.9 Obesity, unspecified; Z68.30 Body mass index [BMI] 30.0-30.9, adult; M17.0 Bilateral primary osteoarthritis of knee; M19.042 Primary osteoarthritis, left hand; M19.041 Primary osteoarthritis, right hand; E03.9 Hypothyroidism, unspecified; E78.00 Pure hypercholesterolemia, unspecified; Z96.651 Presence of right artificial knee joint; Z79.899 Other long term (current) drug therapy; Z80.42 Family history of malignant neoplasm of prostate; Z87.891 Personal history of nicotine dependence; Z98.41 Cataract extraction status, right eye; Z98.42 Cataract extraction status, left eye; Z85.828 Personal history of other malignant neoplasm of skin; Z85.3 Personal history of malignant neoplasm of breast; Z92.3 Personal history of irradiation; Z79.82 Long term (current) use of aspirin; Z96.1 Presence of intraocular lens
CPT/HCPCS: 33282; 36415; 70450; 70544; 70553; 71020; 80053; 80061; 84484; 85025; 85610; 85730; 93005; 93306; 93312; 93320; 93325; 93880; 96374; 99285

== ENCOUNTER → 2017-06-20 | Outpatient (CLI) | payer MEDICARE, BC ==
--- NOTE | 2017-06-20 12:52 | US ---
EXAMINATION TYPE: US pelvic complete DATE OF EXAM: 06/20/2017 COMPARISON: NONE CLINICAL HISTORY: R35.0 Urinary frequency N39.0 Recurrent UTI. reoccurring UTI her whole life, noctur ia TECHNIQUE: TA. Transabdominal sonographic images of the pelvis were acquired. Date of LMP: 20 years EXAM MEASUREMENTS: Uterus: 7.2 x 4.1 x 3.0 cm Endometrial Stripe: 0.5 cm Right Ovary: not seen Left Ovary: 2.0 x 1.4 x 0.9 cm 1. Uterus: Anteverted calcifications noted, wnl 2. Endometrium: upper limits of normal 3. Right Ovary: not seen due to atrophy and bowel gas 4. Left Ovary: 2.0 x 1.4 x 0.9cm 5. Bilateral Adnexa: wnl 6. Posterior cul-de-sac: wnl IMPRESSION: 1. Some limitation on visualization of the ovaries. No ultrasound abnormality is identified.
--- NOTE | 2017-06-20 12:56 | US ---
EXAMINATION TYPE: US kidneys/renal and bladder DATE OF EXAM: 06/20/2017 COMPARISON: NONE CLINICAL HISTORY: R35.0 Urinary frequency N39.0 Recurrent UTI. UTI's for years EXAM MEASUREMENTS: Right Kidney: 10.3 x 5.0 x 4.7 cm Left Kidney: 10.6 x 4.1 x 5.1 cm Right Kidney: No hydronephrosis or masses seen Left Kidney: No hydronephrosis or masses seen Bladder: wnl Bilateral Jets seen: YES Urinary bladder is sonolucent. Posterior wall is normal. IMPRESSION: 1. Normal retroperitoneal ultrasound.
== END | disposition home or self-care (01) ==
LOC: RADUSWWP 09:29
PROVIDERS: ATTEND Family Medicine
DX: R35.0 Frequency of micturition (principal)
CPT/HCPCS: 76770; 76856

== ENCOUNTER → 2018-07-29 | Outpatient (CLI) | payer MEDICARE, BC ==
--- NOTE | 2018-07-29 13:17 | US ---
EXAMINATION TYPE: US kidneys/renal and bladder DATE OF EXAM: 07/29/2018 COMPARISON: NONE CLINICAL HISTORY: 73-year-old female N39.0 Recurrent UTI. Recurrent UTI's x couple years, occasional back pain, 1 episode of hematuria TECHNIQUE: Multiple sonographic images of the kidneys and bladder are obtained. FINDINGS: EXAM MEASUREMENTS: Right Kidney: 12.1 x 5.2 x 5.6 cm Left Kidney: 12.0 x 5.1 x 4.3 cm Post Void Residual Volume: 40.4 mL Right Kidney: no hydronephrosis. Left Kidney: no hydronephrosis. Bladder: wnl Bilateral Jets seen: yes Normal Post Void Residual: yes IMPRESSION: 1. No hydronephrosis. 2. Increased postvoid bladder volume of 40 mL falls just within acceptable limits (<50 mL).
== END | disposition home or self-care (01) ==
LOC: RADUSWWP 08:49
PROVIDERS: ATTEND Family Medicine
DX: N39.0 Urinary tract infection, site not specified (principal)
CPT/HCPCS: 76770